=== PATIENT | female | born 1965 | race Caucasian/White ===

== ENCOUNTER 2016-11-16 02:29 | Emergency (ER) | payer OTHER ==
[2016-11-16] MEDS ORDERED: NS 0.9% 1000 ML* 1,000 ML IV ONE (03:44)
[2016-11-16] MEDS ORDERED: Ondansetron INJ* 2 MG/ML VIAL IV ONE (03:46)
[2016-11-16] MEDS: Morphine INJ* 2 MG/ML 1 ML SYRINGE IV ONE ×3 (04:16→04:18)
[2016-11-16 04:33] LABS: Hematocrit 40 % (35-47); Hemoglobin 13.9 g/dl (12.0-16.0); Mean Corpuscular HGB Conc 34 g/dl (31-36); Mean Corpuscular Hemoglobin 31 pg (27-31); Mean Corpuscular Volume 90 fL (80-97); Mean Platelet Volume 9 um3 (7.4-10.4); Red Blood Count 4.47 10^6/ul (4.0-5.4); Red Cell Distribution Width 13 % (10.5-15); White Blood Count 13.5 10^3/ul (3.5-10.8)
[2016-11-16 04:49] LABS: ALT 19 U/L (7-52); AST 22 U/L (13-39); Albumin 4.5 g/dL (3.2-5.2); Alkaline Phosphatase 79 U/L (34-104); Anion Gap 8 mmol/L (2-11); BUN/Creatinine Ratio 28.6 (8-20); Blood Urea Nitrogen 24 mg/dL (6-24); CO2 Carbon Dioxide 24 mmol/L (22-32); Calcium 9.8 mg/dL (8.6-10.3); Chloride 102 mmol/L (101-111); EGFR African American 91.6 (>60); EGFR Non-African American 71.2 (>60); Globulin 3.3 g/dL (2-4); Glucose 123 mg/dL (70-100); Lipase 26 U/L (11.0-82.0); Potassium 4.2 mmol/L (3.5-5.0); Sodium 134 mmol/L (133-145); Total Protein 7.8 g/dL (6.4-8.9)
[2016-11-16] MEDS ORDERED: Morphine INJ* 2 MG/ML 1 ML SYRINGE IV ONE (04:57)
[2016-11-16 06:10] LABS: Urine Bacteria Absent (Absent); Urine Bilirubin Negative (Negative); Urine Glucose Negative (Negative); Urine Nitrite Negative (Negative)
[2016-11-16] MEDS ORDERED: Cyclobenzaprine TAB* 10 MG PO ONE (06:39)
--- NOTE | 2016-11-16 06:48 | ED ---
Chris Maier Aidan, scribed for Lino Bae on 11/16/16 at 0452 . Abdominal Pain/Female - HPI Summary HPI Summary: 50 y/o female presents to the ED with acute, constant, moderate (7/10), worsening right flank pain that began this morning. The pain radiates down to her groin. There are no other associated symptoms or factors. Pt is allergic to penicillin. - History of Current Complaint Chief Complaint: EDFlankPain Stated Complaint: RT SIDE FLANK PAIN Time Seen by Provider: 11/16/16 03:32 Hx Obtained From: Patient Onset/Duration: Sudden Onset, Lasting Hours, Still Present Timing: Constant Severity Initially: Moderate Severity Currently: Moderate Pain Intensity: 7 Location: Flank - right Radiates: Yes Radiates to: Other - groin Character: Other: - undescribed Aggravating Factor(s): Other: - unknown, however, tender to palpation Alleviating Factor(s): Other: - unknown Associated Signs and Symptoms: Positive: Negative Allergies/Adverse Reactions: Allergies Allergy/AdvReac Type Severity Reaction Status Date / Time Penicillin G Allergy Rash Verified 11/16/16 04:16 PMH/Surg Hx/FS Hx/Imm Hx Infectious Disease History: Reports: Traveled Outside the in Last 30 Days - [place] - Family History Known Family History: Positive: Hypertension - Social History Occupation: Employed Full-time Lives: With Family Alcohol Use: None Substance Use Type: Reports: None Smoking Status (MU): Never Smoked Tobacco Review of Systems Constitutional: Negative Eyes: Negative ENT: Negative Cardiovascular: Negative Respiratory: Negative Gastrointestinal: Negative Positive: flank pain - right, radiates down groin. Negative: burning, dysuria, discharge, frequency, hematuria, incontinence, pain, urgency Musculoskeletal: Negative Skin: Negative Neurological: Negative Psychological: Normal All Other Systems Reviewed And Are Negative: Yes Physical Exam Triage Information Reviewed: Yes Vital Signs On Initial Exam: Initial Vitals Temp Pulse Resp BP Pulse Ox 97.5 F 67 18 138/80 100 11/16/16 02:33 11/16/16 02:33 11/16/16 02:33 11/16/16 02:33 11/16/16 02:33 Vital Signs Reviewed: Yes Appearance: Positive: Well-Appearing, No Pain Distress Skin: Positive: Warm, Skin Color Reflects Adequate Perfusion, Dry Head/Face: Positive: Normal Head/Face Inspection Eyes: Positive: EOMI, MENA ENT: Positive: Normal ENT inspection Neck: Positive: Supple, Nontender Respiratory/Lung Sounds: Positive: Clear to Auscultation, Breath Sounds Present Cardiovascular: Positive: Normal, RRR, Pulses are Symmetrical in both Upper and Lower Extremities Abdomen Description: Positive: Soft, Other: - right flank and RLQ tenderness Bowel Sounds: Positive: Present Neurological: Positive: Normal, Sensory/Motor Intact, Alert, Oriented to Person Place, Time Psychiatric: Positive: Affect/Mood Appropriate Diagnostics - Vital Signs Vital Signs Temp Pulse Resp BP Pulse Ox 11/16/16 04:18 20 11/16/16 02:33 97.5 F 67 18 138/80 100 - Laboratory Result Diagrams: 11/16/16 04:15 11/16/16 04:15 Lab Statement: Any lab studies that have been ordered have been reviewed, and results considered in the medical decision making process. - CT ABD/PEL CT CT Interpretation: No Acute Changes - IMPRESSION: NO URINARY TRACT CALCULI OR EVIDENCE OF URINARY TRACT OBSTRUCTION SEEN. NO INFLAMMATORY PROCESS IDENTIFIED IN THE ABDOMEN OR PELVIS. NO ABDOMINAL MASS, ADENOPATHY, OR COLLECTION SEEN. TAMPON IN THE VAGINA. CORRELATE WITH PHASE OF MENSES. CT Interpretation Completed By: Radiologist - H[employer] AND [employer]ENER Abdominal Pain Fem Course/Dx - Course Course Of Treatment: This is a 50 y/o female presenting with right flank and RLQ tenderness. Labs, urine, and CT scan did not indicate renal calculi. The patient will be discharged with motrin and a diagnosis of right flank pain. - Diagnoses Provider Diagnoses: Right flank pain Discharge - Discharge Plan Condition: Stable Disposition: HOME Discharge Disposition Comment: Please follow up with your primary care provider within 3 days. Prescriptions: Cyclobenzaprine TAB* [Flexeril 10 MG TAB*] 10 mg PO TID PRN #20 tab PRN Reason: Pain Ibuprofen TAB* [Motrin TAB* 600 MG] 600 mg PO Q8H PRN #20 tab PRN Reason: Pain Patient Education Materials: Flank Pain (ED) The documentation as recorded by the Chris snider Aidan accurately reflects the service I personally performed and the decisions made by , Lino Bae.
[2016-11-16 07:14] VITALS: BP 128/67
--- NOTE | 2016-11-16 12:28 | RAD ---
CLINICAL HISTORY: Right flank pain in a patient with a history of ulcerative colitis. COMPARISON: None TECHNIQUE: Noncontrast CT examination of the abdomen and pelvis from the lung bases through the initial tuberosities. FINDINGS: VISUALIZED LUNG BASES: The visualized lung bases are grossly clear. There is no pleural effusion. ABDOMEN AND PELVIS: Evaluation of the solid organs and vasculature is limited without intravenous contrast. The liver, pancreas and adrenal glands are grossly normal in appearance. The gallbladder is normal. Spleen is enlarged measuring 14.3 cm in greatest axial dimension. The kidneys are normal in appearance without focal mass, calcification or signs of hydronephrosis. The small and large bowel are not distended. The appendix is questionably identified in the right lower quadrant (coronal image 49). There is "fecalization" of contents of the distal small bowel. The gas and stool-filled colon exhibits scattered rectosigmoid diverticula but no CT evidence of acute inflammatory change or obstruction. There is no gross retroperitoneal or mesenteric lymphadenopathy. The pelvic viscera is normal in appearance. A tampon is incidentally noted in the vagina. The abdominal aorta and iliac arteries are normal in course and diameter. Degenerative changes include multilevel loss of intervertebral disc height involving the lower thoracic and lumbar spine.There are no sinister bone lesions. IMPRESSION: 1. No renal calculi or signs of hydroureter nephrosis. 2. There is "fecalization" of the contents of the distal ileum. This nonspecific finding can sometimes be seen in the setting of constipation and/or reduced bowel motility. 3. Splenomegaly. 4. Additional chronic and degenerative changes as described in the body of the report.
== END 2016-11-16 07:19 | disposition home or self-care (01) ==
LOC: ED 02:29
DX: R10.9 Unspecified abdominal pain (principal); R10.813 Right lower quadrant abdominal tenderness; Z88.0 Allergy status to penicillin
CPT/HCPCS: 36415; 74176; 80053; 81003; 81015; 83690; 84702; 85025; 96360; 96374; 96375; 99283; A9270-GY; J2270; J2405